=== PATIENT | female | born 1950 | race Two or more races ===

== ENCOUNTER → 2024-02-16 | Emergency (ER) | payer OTHER ==
[~2024-02-16] VITALS: Ht 147.3 cm; Wt 81.6 kg
[~2024-02-16] MED LIST: KETOROLAC TROMETHAMINE 30 MG VIAL IM ONE; NEURONTIN300 MG PO; TOPROL XL25 M1 PO; XANAX0.25 MG PO
[2024-02-16 15:32] LABS: HEMATOCRIT 34.9 % (36.0-45.00); HEMOGLOBIN 11.5 g/dL (12.0-15.00); MEAN CELL VOLUME 76.5 fL (80.00-100.00); MEAN CORPUSCULAR HEMOGLOBIN 25.2 pg (27.00-32.0); PLATELET COUNT 234 K/uL (150-450); RED BLOOD COUNT 4.57 M/uL (4.00-6.00); RED CELL DISTRIBUTION WIDTH 18.1 % (11.5-14.5)
[2024-02-16 15:43] LABS: PH,URINE 5.5 (5.0-8.0); URINE APPEARANCE Clear; URINE BILIRRUBIN Negative (NEGATIVE); URINE BLOOD Negative; URINE COLOR Yellow; URINE KETONE Negative (NEGATIVE); URINE LEUKOCYTE Small; URINE NITRATE Negative; URINE PROTEIN Negative (NEGATIVE); URINE UROBILINOGEN 0.2 E.U./dl
[2024-02-16 15:44] LABS: URINE RBC 2.4 uL (0.0-20.8); URINE WBC 62.7 uL (0.0-23.2)
[2024-02-16 16:08] LABS: URINE BACTERIA > 9821.5 uL (0.0-1933); URINE CAST 0.15 uL (0.0-1.40); URINE GLUCOSE >=1000 MG/DL (NEGATIVE)
[2024-02-16 16:10] LABS: INR 0.98; PARTIAL THROMBOPLASTIN TIME 28.4 SECONDS (22.0-34.0); PROTHROMBIN TIME 10.3 SECONDS (9.0-11.5)
[2024-02-16 16:16] LABS: ALBUMIN 3.9 gm/dL (3.4-5.0); BILIRUBIN TOTAL 0.36 mg/dL (0.3-1.2); CALCIUM 9.8 mg/dL (8.5-10.1); CREATININE SERUM 0.6 mg/dL (0.55-1.02); GFR 97.2; POTASSIUM 3.84 mEq/L (3.5-5.1); TOTAL PROTEIN 6.9 gm/dL (6.4-8.2)
== END | disposition home or self-care (01) ==
LOC: ER 14:06
PROVIDERS: General Practice
DX: R55 Syncope and collapse (principal)
CPT/HCPCS: 36415; 70450; 71045; 96372; 99283; J1885